=== PATIENT | male | born 1950 | race Caucasian/White ===

== ENCOUNTER 2017-09-07 21:35 | Emergency (ER) | payer OTHER ==
[~2017-09-07] VITALS: Ht 170.2 cm; Wt 77.1 kg
[2017-09-07 21:35] VITALS: Ht 170.2 cm; Wt 77.1 kg
[2017-09-08 02:26] VITALS: BP 0/0
== END 2017-09-07 21:41 | disposition expired ==
LOC: ED 21:35
DX: I46.9 Cardiac arrest, cause unspecified (principal)